=== PATIENT | female | born 1945 | race American Indian/Alaskan Native ===

== ENCOUNTER 2018-05-07 12:43 | Day surgery (SDC) | payer BC ==
[2018-05-06 07:05] VITALS: BMI 25.2
[2018-05-07 13:33] LABS: BASO # 0.02 K/mm3 (0.0-2.0); BASO % 0.4 % (0.0-3.0); EOS % 0.8 % (1.5-5.0); GRAN # 2.57 (1.4-6.5); GRAN % 54.4 % (50.0-68.0); HEMOGLOBIN 13.1 g/dL (12.0-16.0); LYMPH # 1.9 (1.2-3.4); LYMPH % 39.3 % (22.0-35.0); MEAN CELL VOLUME 88.4 fl (80.0-105.0); MEAN CORPUSCULAR HEMOGLOBIN 28.6 pg (25.0-35.0); MEAN CORPUSCULAR HGB CONC 32.3 g/dl (31.0-37.0); MEAN PLATELET VOLUME 10.1 fl (7.0-11.0); MONO # 0.2 (0.1-0.6); MONO % 5.1 % (1.0-6.0); RBC 4.58 10^6/uL (3.5-6.1); RED CELL DISTRIBUTION WIDTH 13.4 % (11.5-14.5); WHITE BLOOD COUNT 4.7 10^3/ul (4.5-11.0)
[2018-05-07 13:38] LABS: INR 0.99; PARTIAL THROMBOPLASTIN TIME 29.2 Seconds (25.1-36.5); PROTHROMBIN TIME 11.4 SECONDS (9.4-12.5)
[2018-05-07 13:40] LABS: BLOOD UREA NITROGEN 21 mg/dL (7-21); CALCIUM 9.7 mg/dL (8.4-10.5); GFR NON-AFRICAN AMERICAN > 60
[2018-05-07] MEDS ORDERED: Lidocaine 1% Inj (20ml) ONE (15:47)
[2018-05-07] MEDS ORDERED: Midazolam 2 MG/2 ML VIAL ONE (17:34)
[2018-05-07] MEDS ORDERED: Oxycodone/Acetaminophen 5/325 mg Tab PO PRN (18:22)
[2018-05-07] MEDS ORDERED: Sodium Chloride 0.45% 1,000 ML IV SCH (18:30)
[2018-05-07 18:59] VITALS: PULSE 60; RESP 18; TEMP 97.5; O2SAT 99
[2018-05-07] MEDS ORDERED: Midazolam 2 MG/2 ML VIAL IVP ONE (19:08)
[2018-05-07 19:31] VITALS: BP 132/68
--- NOTE | 2018-05-07 19:41 | CT ---
PROCEDURE: CT guided pelvic bone marrow aspiration and biopsy. HISTORY: Multiple myeloma. Needs bone marrow aspiration and biopsy PHYSICIAN(S): Elvin Hidalgo MD. TECHNIQUE: The relative risks and indications of the procedure were explained to the patient and consent obtained. The patient was placed prone on the CT scanner and preliminary images through the pelvis obtained. Conscious sedation and monitoring were provided throughout the procedure by a nurse. The right posterior superior iliac spine was selected for biopsy the skin was prepped and draped usual sterile fashion. 1 percent xylocaine was used to anesthetize the skin and soft tissues. An on control bone biopsy needle was advanced to the right posterior, superior iliac spine and its position confirmed with CT. The needle was advanced through the cortex with the drill. Bone marrow aspiration was performed. Next a long core biopsy was obtained with the on control needle. The slides were prepared by Dr. Teo nieves. The patient tolerated the procedure well. IMPRESSION: 1. CT-guided pelvic bone marrow aspiration and biopsy as described above.
== END 2018-05-07 20:04 | disposition home or self-care (01) ==
LOC: SDS 12:43
PROVIDERS: ATTEND Radiology Vascular & Interventional Radiology
DX: C90.00 Multiple myeloma not having achieved remission (principal)
CPT/HCPCS: 20225; 36415; 77012; 80048; 85025; 85610; 85730; 99152; 99153; J2250; J2405; J3010; J7030